=== PATIENT | female | born 1985 | race Asian ===

== ENCOUNTER 2022-10-25 09:09 | Emergency (ER) | payer OTHER ==
[~2022-10-25] VITALS: Ht 157.5 cm; Wt 45.0 kg
[2022-10-25 09:26] VITALS: BP 105/66
[2022-10-25] MEDS ORDERED: ACETAMINOPHEN 325MG TABLET PO ONE (09:45)
[2022-10-25] MEDS ORDERED: NIRM1TAB PO (10:56)
[2022-10-25] MEDS ORDERED: TOPUD MT (10:56)
== END 2022-10-25 11:07 | disposition home or self-care (01) ==
LOC: EDSEX 09:09 → ER 09:09
DX: U07.1 COVID-19 (principal)
CPT/HCPCS: 81025; 99283